=== PATIENT | male | born 1990 | race Hispanic/Latino ===

== ENCOUNTER 2017-08-19 16:21 | Emergency (ER) | payer OTHER ==
[2017-08-19 16:39] VITALS: RESP 18; O2SAT 99
--- NOTE | 2017-08-19 17:07 | C.PDOC ---
History Of Present Illness 27 y/o male presents to ED with c/o right dental pain developed yesterday. Patient states he has scheduled dentist appointment for root canal but pain was worse today prompting visit. Patient reports taking multiple over the counter pain medication with no improvement and denies fever, swelling, drainage or any other complaints at this time. Time Seen by Provider: 08/19/17 16:26 Chief Complaint (Nursing): Dental Pain History Per: Patient History/Exam Limitations: no limitations Onset/Duration Of Symptoms: Days Past Medical History Reviewed: Historical Data, Nursing Documentation, Vital Signs Vital Signs: Last Vital Signs Temp 98.7 F 08/19/17 18:34 Pulse 83 08/19/17 18:34 Resp 18 08/19/17 18:34 BP 129/78 08/19/17 18:34 Pulse Ox 99 08/19/17 18:34 - Medical History PMH: No Chronic Diseases Surgical History: No Surg Hx Family History: States: No Known Family Hx - Social History Hx Alcohol Use: No Hx Substance Use: No Review Of Systems Constitutional: Negative for: Fever, Chills ENT: Positive for: Mouth Pain. Negative for: Mouth Swelling Gastrointestinal: Negative for: Nausea, Vomiting Skin: Negative for: Rash Physical Exam - Physical Exam Appears: Non-toxic, No Acute Distress Skin: Warm, Dry, No Rash Head: Atraumatic, Normacephalic Oral Mucosa: Moist Teeth: Caries, Tender To Palpation, Other (poor dentition. cracked teeth. Dental decay to upper and lower right 2nd molars) Gingiva: Normal Appearing, No Erythema, No Swelling Throat: Normal, No Erythema, No Exudate Neurological/Psych: Oriented x3, Normal Speech ED Course And Treatment O2 Sat by Pulse Oximetry: 99 (RA) Pulse Ox Interpretation: Normal Medical Decision Making Medical Decision Making: Motrin and Tramadol was offered to the patient and patient refuses stating those medications do not work. The patient is requesting Oxycodone, stating that is the only thing that works. Patient was instructed on the pain policy and informed the patient how we cannot prescribed Narcotic medications. Disposition - Disposition Referrals: [facility] [place] [Outside] Disposition: HOME/ ROUTINE Disposition Time: 18:00 Condition: GOOD Additional Instructions: Follow up with Dentist as scheduled in 2-3 days without fail. Return if worsened. Prescriptions: Acetaminophen/Codeine [Tylenol/Codeine 300 MG/30 MG] 1 tab PO Q8 PRN #15 tab PRN Reason: Pain, Severe (8-10) Amoxicillin [Amoxil 500 mg Cap] 500 mg PO TID #29 cap Instructions: Tooth Decay, Adult (DC) Forms: [email or web address] (Greenlandic) - Clinical Impression Clinical Impression: Dental caries - PA / [employer]LECTRICAL TE[employer] / Resident Statement MD/DO has reviewed & agrees with the documentation as recorded. - Scribe Statement The provider has reviewed the documentation as recorded by the Scribjuan Martinez All medical record entries made by the Aminata were at my direction and personally dictated by me. I have reviewed the chart and agree that the record accurately reflects my personal performance of the history, physical exam, medical decision making, and the department course for this patient. I have also personally directed, reviewed, and agree with the discharge instructions and disposition.
[2017-08-19] MEDS ORDERED: Oxycodone/Acetaminophen 5/325 mg Tab PO STA (18:22)
[2017-08-19] MEDS ORDERED: Oxycodone/Acetaminophen 5/325 mg Tab ONE (18:26)
[2017-08-19 18:35] VITALS: BP 129/78; PULSE 83; TEMP 98.7
== END 2017-08-19 19:05 | disposition home or self-care (01) ==
LOC: C.ER 16:21
DX: K02.9 Dental caries, unspecified (principal); Z87.891 Personal history of nicotine dependence